=== PATIENT | female | born 1955 | race Caucasian/White ===

== ENCOUNTER 2016-12-07 13:57 | Day surgery (SDC) | payer OTHER ==
[~2016-12-07] VITALS: Ht 157.5 cm; Wt 99.0 kg
[~2016-12-07 13:57] MED LIST: 0.9% Sodium Chloride 1,000 ML IV PRN; ASPI-973 PO; ATOR20TA PO; GABA-502 PO; INSU100V7 SUBQ; METF-496 PO; Sodium Chloride LOK Flush 10 mL Syringe IV PRN; fentaNYL-PF 50 mCg/mL 2 mL Inj IVPUSH PRN
[2016-12-07 14:46] VITALS: BP 168/100; PULSE 85; RESP 16; O2SAT 95
[2016-12-07 15:25] VITALS: BP 135/78; PULSE 87; RESP 16; O2SAT 95
[2016-12-07 15:35] VITALS: BP 136/73; PULSE 82; RESP 16; O2SAT 96
[2016-12-07 15:45] VITALS: BP 150/82; PULSE 75; RESP 16; O2SAT 97
--- NOTE | 2016-12-08 04:09 | ENDO ---
[address] [address] ENDOSCOPY PROCEDURE PATIENT: FAITH BOATENG : 1955 MR#: [id number] ADMIT: 12/07/2016 JOB ID: [id number] PROCEDURE: Colonoscopy. INDICATIONS: Screening. ASA CLASSIFICATION: II. MALLAMPATI SCORE: II. MEDICATIONS: 1. Versed 4 mg. 2. Fentanyl 100 mcg. INSTRUMENT USED: PCF-H180AL PREPARATION QUALITY: Fair. PROCEDURE DETAILS: After informed consent was obtained, the patient was brought into the GI suite, where she was placed on oxygen via nasal cannula and monitored with continuous pulse oximeter, telemetry and blood pressure monitoring. A time-out was performed. Then, she was placed in the left lateral decubitus position and medications were administered for sedation. A digital rectal exam was performed, which was unremarkable. The colonoscope was then inserted into the rectum and advanced under direct visualization to the cecum, which was identified by the presence of the ileocecal valve and appendiceal orifice. Once the cecum was reached, the colonoscope was withdrawn back into the rectum as the mucosa and lumen were examined. In the rectum, retroflexion was performed. Following retroflexion, remaining air in the rectum was suctioned and the procedure was completed. FINDINGS: 1. In the ascending colon, there was an approximately 4 mm sessile polyp that was removed with a cold snare. 2. Retroflexed views in the rectum revealed small to moderate-sized internal hemorrhoids. IMPRESSION: 1. Ascending colon polyp. 2. Internal hemorrhoids. RECOMMENDATIONS: Repeat colonoscopy in five years, sooner if symptoms should dictate. COMPLICATIONS: None. ESTIMATED BLOOD LOSS: Less than 5 mL.
--- NOTE | 2016-12-11 17:27 | PATH ---
SURGICAL PATHOLOGY Attending Physician:Micaela Echevarria CASE STATUS: Signed Out PATIENT NAME: FAITH BOATENG PID: [id number] : 1955 DATE COLLECTED:12/07/2016 00:00 SPECIMEN: Colon, Biopsy CLINICAL HISTORY: 1. ASCENDING POLYP FINAL DIAGNOSIS: Ascending Colon, Polyp, Biopsy: Portions of tubular adenoma x2; negative for high-grade dysplasia. ICD10: K63.5 GROSS DESCRIPTION: The specimen is received in one formalin filled container labeled with the patient's name, sublabeled "ascending polyp" and consists of 2 portions of tissue which aggregate to 0.3 x 0.3 x 0.2 CM. The specimen is entirely submitted in one cassette. 12/08/2016 [facility] ICD-9 CODES: CPT CODES: 1: 98020 Electronically Signed Out Ksenia Bullock MD [facility] Pathology [facility] [address], [place] [address] Technical component performed at [facility], [facility] [address], [address]
== END 2016-12-07 23:59 | disposition home or self-care (01) ==
LOC: END 13:57
PROVIDERS: ATTEND Internal Medicine Gastroenterology
DX: Z12.11 Encounter for screening for malignant neoplasm of colon (principal); Z83.71 Family history of colonic polyps; D12.2 Benign neoplasm of ascending colon; K64.8 Other hemorrhoids; E11.42 Type 2 diabetes mellitus with diabetic polyneuropathy; E78.5 Hyperlipidemia, unspecified; E66.01 Morbid (severe) obesity due to excess calories; M54.5 Low back pain; Z79.4 Long term (current) use of insulin; Z79.84 Long term (current) use of oral hypoglycemic drugs; Z79.82 Long term (current) use of aspirin; Z68.41 Body mass index [BMI] 40.0-44.9, adult
CPT/HCPCS: 45385; 99152; J7030